=== PATIENT | female | born 1990 | race Caucasian/White ===

== ENCOUNTER 2018-09-04 22:29 | Inpatient (IN) ==
[~2018-09-04 22:29] MED LIST: *HR* Nalbuphine 10 MG/ML AMPUL IVP PRN; Famotidine 20 MG/2 ML VIAL IVP PRN; Metoclopramide 10 MG/2 ML VIAL IVP PRN; Naloxone 0.4 MG/ML INJ IVP PRN; Ondansetron 4 MG/2 ML VIAL IVP PRN
[2018-09-04] MEDS ORDERED: Ringers Solution, Lactated 1,000 ML IVC SCH (22:30)
[2018-09-04] MEDS ORDERED: Bupivacaine-MPF 0.25% 10 ML VIAL EP ONE (22:56)
[2018-09-04] MEDS ORDERED: *HR* FentaNYL (PF) 100 MCG/2 ML VIAL EP ONE (22:56)
[2018-09-04] MEDS ORDERED: Lidocaine -MPF 1% 5 ML AMPUL ONE (22:58)
[2018-09-04] MEDS ORDERED: *HR* FentaNYL (PF) 100 MCG/2 ML VIAL ONE (22:58)
[2018-09-04] MEDS ORDERED: Bupivacaine-MPF 0.25% 10 ML VIAL ONE (22:58)
[2018-09-04] MEDS ORDERED: Epidural Premix (fent/bupiv) 110 ML EP SCH (23:00)
[2018-09-04 23:08] LABS: Basophils # 0.1 K/mcL (0.0-0.2); Basophils % 0.3 %; Eosinophils # 0.1 K/mcL (0.0-0.6); Eosinophils % 0.4 %; Hematocrit 34.7 % (35.3-44.9); Hemoglobin 12.3 g/dL (11.5-15.4); Immature Granulocytes % 0.4 % (0-4); Lymphocytes # 2.9 K/mcL (0.6-4.6); Lymphocytes % 19.1 %; Mean Corpuscular HGB Conc 35.4 g/dL (31.6-35.5); Mean Corpuscular Hemoglobin 30.7 pg (28.0-33.3); Mean Corpuscular Volume 86.5 fL (83.0-100.0); Mean Platelet Volume 11.1 fL (9.4-12.4); Monocytes # 0.9 K/mcL (0.0-1.3); Monocytes % 5.6 %; Neutrophils # 11.3 K/mcL (1.6-8.9); Platelet Count 178 K/mcL (140-400); Red Blood Count 4.01 M/mcL (3.82-4.97); Red Cell Distribution Width 12.3 % (11.5-14.5); Segmented Neutrophils % 74.2 %
--- NOTE | 2018-09-04 23:14 | Anesthesia Evaluation PreOp ---
Date of Encounter: 09/04/18 Time of Encounter: 23:12 - Past History Planned Operation: [facility] Cardiac History: Denies any Significant Hx Pulmonary History: Smoker (1/2ppd), Pack/yr (7) PATIENT CARE SPECIALIST History: Denies Any Significant HX Other Medical History: Other (chronic lower back pain w/out radiculopathy; an xiety, depression, ADHD) Anesthesia History: No Prior Anesthetic Complications (previous MARKUS x 3--no complications) : Yes Alcohol Use: none Drug use: prescription drug abuse Medications and Allergies Promethazine [Phenergan] 12.5 mg PO Q8HR #15 tablet 02/05/18 [Rx] Suboxone 8 mg-2 mg Sl Film 8 mg PO BID 02/05/18 [History] Allergy/AdvReac Type Severity Reaction Status Date / Time dextromethorphan AdvReac Vomiting Verified 02/05/18 11:41 [From Capmist DM] guaifenesin [From Capmist DM] AdvReac Vomiting Verified 02/05/18 11:41 pseudoephedrine AdvReac Vomiting Verified 02/05/18 11:41 [From Capmist DM] sulfamethoxazole AdvReac Cramping Verified 02/05/18 11:41 [From Bactrim] of the Muscles trimethoprim [From Bactrim] AdvReac Cramping Verified 02/05/18 11:41 of the Muscles - Meds/Allergy Pre-op Review Medications Reviewed: Yes Allergies Reviewed: Yes Beta Blockers on Current Med List: No Anesthesia Results - Labs 09/04/18 22:40 Anesthesia Exam 120/74, HR 69 O2 Sat Height 1.6 m Weight 61.689 kg NPO (# of Hours): solids > 5hr Pain Scale: 6 Pain Scale Used: Mooney-Patterson (Faces) - HEENT Pupil (Motor): Pupils equal Mallampati: II Teeth: Edentulous Denture Type: Upper: Complete, Lower: Complete Oral Opening: Greater than 3 - PATIENT CARE SPECIALIST LOC: Oriented PATIENT CARE SPECIALIST Motor: Normal RUE, Normal LUE, Normal RLE, Normal LLE, Normal Face PATIENT CARE SPECIALIST Sensory: Normal: RUE, LUE, RLE, LLE, Face - Cardiac Rhythm: Regular Murmur: None - Pulmonary Breath Sounds: bilateral Clear Respiratory Effort: Symmetrical Anesthesia Assess/Plan ASA Score: 2 Level of consciousness: Cooperative, Oriented, Restless Anesthetic Plan: Epidural Monitoring Plan: Standard Monitors Recovery Plan: Other
--- NOTE | 2018-09-04 23:21 | OB/GYN History & Physical ---
Date of Encounter: 09/04/18 Time of Encounter: 23:12 Assessment and Plan (1) 38 weeks gestation of Current visit: Yes Status: Acute Admit for spontaneous labor at 38w5d. Patient is found to be 6 cm on arrival May have epidural when she desires. AROM when appropriate Anticipate (2) NST (non-stress test) reactive Current visit: Yes Status: Acute FHR 125 bpm, moderate variability, +15x15 accels, no decels. (3) Spontaneous onset of labor Current visit: Yes Status: Acute Admit for labor at 38w5d History of Present Illness Chief complaint: Labor evaluation HPI: Ms. Reeves is a 28 year old female at 38w5d who arrives with complaint of spontaneous onset of labor. She reports contractions starting at 8PM this evening. She does report positive movement, denies bleeding and fluid leakage. Blood type B+ GBS negative T. Pall negative Varicella Immune Rubella Immune HIV negative Past Med Surg Social Fam HX - Past Medical History Source: patient Medical history: non-contributory Additional medical history: Teeth extraction Psychiatric history: anxiety, ADHD, depression - Past Surgical History Surgical History: no surgical history Additional surgical history: colonoscopy - Social History Smoking Status: Current every day smoker Packs per day: .5 Smokeless Tobacco Status: No Alcohol use: none Drug use: prescription drug abuse Current living situation: Home - Independent, With Family Activity Level: Independent ambulation Recent Out of Country Travel Within the Last 8 Weeks: No Exposure or Possible Exposure to Illness During Travel: No - Family History Father Living Status: Still Living Hx Family Cardiac Disorders: Yes (HTN) Hx Family Respiratory Disorders: No Hx Family Cancer: No Hx Family GI Disorders: No Hx Family Genitourinary Disorders: No Hx Family Endocrine Disorder: No Hx Family Musculoskeletal Disorders: No Hx Family Neuromuscular Disorders: No Hx Family Neurologic Disorders: No Hx Family HEENT Disorders: No Hx Family Autoimmune Disorders: No Hx Family Reproductive Disorders: No Hx Family Psychosocial Disorders: No Hx Family Medical Disorders: No Obstetrical History - Pregnancies : 5 Para: 4 Medications and Allergies Promethazine [Phenergan] 12.5 mg PO Q8HR #15 tablet 02/05/18 [Rx] Suboxone 8 mg-2 mg Sl Film 8 mg PO BID 02/05/18 [History] Allergy/AdvReac Type Severity Reaction Status Date / Time dextromethorphan AdvReac Vomiting Verified 02/05/18 11:41 [From Capmist DM] guaifenesin [From Capmist DM] AdvReac Vomiting Verified 02/05/18 11:41 pseudoephedrine AdvReac Vomiting Verified 02/05/18 11:41 [From Capmist DM] sulfamethoxazole AdvReac Cramping Verified 02/05/18 11:41 [From Bactrim] of the Muscles trimethoprim [From Bactrim] AdvReac Cramping Verified 02/05/18 11:41 of the Muscles Exam - Constitutional Constitutional: well developed, well nourished, no acute distress, thin - HEENT HEENT: Normocephaly - Neck Neck exam: full ROM, normal inspection - Lungs Respiratory exam: CTAB - Cardiovascular Cardiovascular exam: RRR, +S1, +S2 - Breasts Breast: bilateral: normal - Abdomen Abdomen: Present: bowel sounds normal, gravid, non tender - Extremities Extremities exam: full ROM, normal capillary refill, normal inspection Deep Tendon Reflex Grade: 2+ Normal - Vulva Vulva: bilateral: normal - Vagina Vagina: Present: normal moisture - Cervix Dilation: 6 (per RN exam) - Adnexa Adnexa: bilateral: normal - Anus/Rectum Anus/Rectum: Present: normal perianal skin Results Result Diagrams: 09/04/18 22:40 Abnormal lab results WBC 15.3 K/mcL (4.3-11.1) H 09/04/18 22:40 Hct 34.7 % (35.3-44.9) L 09/04/18 22:40 Neutrophils # 11.3 K/mcL (1.6-8.9) H 09/04/18 22:40 All other labs normal. - VTE Reasons for not Prescribing Prophylaxis: Treatment not Indicated - Low risk for VTE
--- NOTE | 2018-09-04 23:41 | Anesthesia Procedures ---
Date of Encounter: 09/04/18 Time of Encounter: 23:39 Procedures: Anesthesia - Epidural/Spinal Patient ID/Chart reviewed: Yes Patient examined: Yes OB Eval: Gestational age: 38 weeks 5 days OB Eval: : 5 OB Eval: Hx Para: 4 OB Eval: Dilated at (cm): 6 OB Eval: Contractions: Non-stressed pattern Consent Obtained: Yes Supplemental Oxygen: None/Room Air Site Prep: Aseptic Technique, Sterile prep and drape, Povidone-Iodine 1% Patient position: upright Local Anesthetic: Lidocaine 1% Amount of Local Anesthetic used: 3 Touhy Needle Gauge: 18 Touhy Needle Depth (cm): 5 Catheter Depth at Skin (cm): 10 Test Dose (1.5% Lido + Epi): Volume given (mls): 5 Test Dose Result: Negative Loading Dose: 0.25% Marcaine (mls): 5 Loading Dose: Fentanyl (mcg): 100 Loading Dose Administered: Thru Catheter Infusion Med: 0.125% Bupivacaine w/ 2 mcg/ml Fentanyl Infusion Rate (mls/hr): [address]: Tegaderm, Tape Interspace Used: L4-L5 Loss of Resistance (DONALD): Yes Blood: No CSF: No Paresthesia: No Procedure: successful on 1st attempt; patient tolerated procedure well; VSS Vitals + FHT's: see [facility]'s electronic records for VS entry
--- NOTE | 2018-09-05 00:16 | OB Labor Progress Note ---
Date of Encounter: 09/05/18 Time of Encounter: 00:02 Labor Progress Note - Subjective Subjective: Patient is comfortable with epidural in place. - Vital Signs Vital Signs: WNL - Cervix Cervix: 6/80/-1 - Heart Tones Heart Tones: FHR 125 bpm, moderate variability, +15x15 accels, variable decels. - Bingham Bingham: q2 min - Interventions Interventions: SVE AROM for small amount of moderate meconium fluid - Plan Physician notified: No Plan: Anticipate
[2018-09-05 01:47] LABS: Amphetamine Screen,Urine Negative ng/mL (Cutoff=1000); Barbiturate Screen,Urine Negative ng/mL (Cutoff=200); Benzodiazepines Screen,Urine Negative ng/mL (Cutoff=200); Cannabinoid Screen,Urine Negative ng/mL (Cutoff = 50); Cocaine Screen,Urine Negative ng/mL (Cutoff= 300); Opiate Screen,Urine Negative ng/mL (Cutoff=300); Phencyclidine Screen,Urine Negative ng/mL (Cutoff=25)
--- NOTE | 2018-09-05 03:21 | OB/GYN Procedure Note ---
Delivery - Delivery Date: 09/05/18 Provider: Elva Porras Intrapartum events: meconium Delivery induction: none Delivery augmentation: rupture of membranes Delivery monitor: external FHT, external uterine Anesthesia: none Quantitated Blood Loss: 50 - Infant (s) Infant A Delivery Date: 09/05/18 Infant Delivery Time: 02:46 Presentation: vertex Position: JENNIFER Route of delivery: Gender: Female Viability: Viable Pounds: 5 Ounces: 0 Weight Gram: 2265 kg at 1 minute: 8 at 5 mins: 8 Shoulder Dystocia: not encountered Specimens collected: cord blood Placenta: spontaneous Cord: 3 umbilical vessels - Repair Episiotomy: none Laceration Description: None - Complications Delivery complications: none Delivery comments: Called to room for delivery. Under maternal effort, spontaneous delivery of viable female over intact perineum. placed on maternal abdomen for drying and stimulation. Cord clamped and cut after pulsation ceased. Spontaneous delivery of intact placenta, EBL 50 mL's. No nuchal cord or shoulder dystocia encountered. Meconium was noted with AROM and at delivery. Mother stable for 2 hr recovery. to nursery for signs of respiratory distress. weighed 5 lbs, apgars 8 & 8. - Disposition Mom disposition: stable in LDR disposition: stable in LDR
[2018-09-05] MEDS ORDERED: Acetaminophen 325 MG TABLET PO ONE (03:30)
[2018-09-05] MEDS ORDERED: Oxytocin 20 units/ LR 1000 mL 20 UNIT/1,000 ML BAG IVC ONE (03:51)
[2018-09-05] MEDS ORDERED: Lanolin 7 G OINT...G. TP PRN (06:25)
[2018-09-05] MEDS ORDERED: Acetaminophen 325 MG TABLET PO PRN (06:25)
[2018-09-05] MEDS ORDERED: Oxytocin 20 units/ LR 1000 mL 20 UNIT/1,000 ML BAG IVC SCH (06:25)
[2018-09-05] MEDS: Prenatal Vit/FA 1 EACH TABLET PO SCH (08:06)
[2018-09-05] MEDS: Ibuprofen 600 MG TABLET PO PRN ×2 (08:06→15:13)
[2018-09-06 07:37] VITALS: BP 134/83
[2018-09-06] MEDS: Ibuprofen 600 MG TABLET PO PRN (09:15)
[2018-09-06] MEDS: Prenatal Vit/FA 1 EACH TABLET PO SCH (09:16)
--- NOTE | 2018-09-06 10:39 | Discharge Summary ---
Date of Encounter: 09/06/18 Time of Encounter: 10:30 - Discharge Diagnosis (1) Spontaneous vaginal delivery Priority: Primary Status: Acute Comments: Patient meeting day one milestones. Pain well-controlled with prescribed medications. Voiding without difficulty, tolerating regular diet, bleeding light. No bowel movement yet, but patient reports she does feel like she needs to have a BM. Anticipate discharge today to guest status. Depo and Nexplanon offered prior to discharge but patient plans to use the NuvaRing at 4 weeks . Discussed need for barrier method if she is sexually active prior to her 4 week appointment and she verbalizes understanding. (2) Breast feeding status of mother Priority: Secondary Status: Acute Comments: support as needed. Will provide breast pump prescriptions. (3) complicated by subutex maintenance, antepartum Priority: Secondary Status: Acute Comments: Patient is currently status To continue Subutex dosing as prescribed by her physician. She is not in our group here at [place]. - Discharge Medications Prescriptions: New Acetaminophen [Tylenol] 650 mg PO Q6HR PRN tablet PRN Reason: Mild Pain Ibuprofen [Motrin] 600 mg PO Q6HR PRN #60 tablet PRN Reason: Cramping Breast Pump [BREAST PUMP] 1 each .ROUTE AD #1 each Docusate [Colace] 100 mg PO BID capsule Lanolin [Lansinoh] 1 appl TP TID PRN oint...g. PRN Reason: Sore Nipples Continue Suboxone 8 mg-2 mg Sl Film 8 mg PO BID Home Medications: Suboxone 8 mg-2 mg Sl Film 8 mg PO BID 02/05/18 [History] Acetaminophen [Tylenol] 650 mg PO Q6HR PRN tablet 09/06/18 [Rx] Breast Pump [BREAST PUMP] 1 each .ROUTE AD #1 each 09/06/18 [Rx] Docusate [Colace] 100 mg PO BID capsule 09/06/18 [Rx] Ibuprofen [Motrin] 600 mg PO Q6HR PRN #60 tablet 09/06/18 [Rx] Lanolin [Lansinoh] 1 appl TP TID PRN oint...g. 09/06/18 [Rx] Allergies/Adverse Reactions: Allergy/AdvReac Type Severity Reaction Status Date / Time dextromethorphan AdvReac Vomiting Verified 02/05/18 11:41 [From Capmist DM] guaifenesin [From Capmist DM] AdvReac Vomiting Verified 02/05/18 11:41 pseudoephedrine AdvReac Vomiting Verified 02/05/18 11:41 [From Capmist DM] sulfamethoxazole AdvReac Cramping Verified 02/05/18 11:41 [From Bactrim] of the Muscles trimethoprim [From Bactrim] AdvReac Cramping Verified 02/05/18 11:41 of the Muscles Data Procedures and tests throughout hospitalization: Laboratory Tests 09/04/18 09/04/18 22:29 22:40 WBC 15.3 H RBC 4.01 Hgb 12.3 Hct 34.7 L MCV 86.5 MCH 30.7 MCHC 35.4 RDW 12.3 Plt Count 178 MPV 11.1 Immature Gran % 0.4 Seg Neutrophils % 74.2 Lymphocytes % 19.1 Monocytes % 5.6 Eosinophils % 0.4 Basophils % 0.3 Neutrophils # 11.3 H Lymphocytes # 2.9 Monocytes # 0.9 Eosinophils # 0.1 Basophils # 0.1 Urine Opiates Screen Negative Ur Barbiturates Screen Negative Ur Phencyclidine Scrn Negative Ur Amphetamines Screen Negative U Benzodiazepines Scrn Negative Urine Cocaine Screen Negative U Marijuana (THC) Screen Negative Ur Drug Screen Interp See Below Date of admission: 09/04/18 22:29 Primary care physician: Eula Nelson CNP Consults: 09/05/18 00:23 Consult to Ui Developer Designer ([employer]) [CONS] Stat Reason For Exam: Reason for SW Consult: subutex, history of post depression 09/05/18 06:25 Consult to Team Psychologist [CONS] Routine Comment: Vaginal delivery, consult needed Consult to Ui Developer Designer [CONS] Routine Reason for SW Consult: Subutex RX Discharging clinician: Elva Porras Anticipated date of discharge: 09/06/18 - Patient Status Disposition: Home, Self-Care Condition: Good Functional capacity at discharge: independent ambulation Overall status at discharge: patient is progressing back to baseline - Discharge Instructions Follow Up With: Eula Nelson CNP [Primary Care Provider] - - Diet and Activity Activity: resume usual activities as tolerated Diet: regular diet Hospital Course Reason for admission: active labor Delivery: Episiotomy: none baby: female Hospital course: Delivery Date: 09/05/18 Provider: Elva Porras Intrapartum events: meconium Delivery induction: none Delivery augmentation: rupture of membranes Delivery monitor: external FHT, external uterine Anesthesia: none Quantitated Blood Loss: 50 - (s) A Delivery Date: 09/05/18 Infant Delivery Time: 02:46 Presentation: vertex Position: JENNIFER Route of delivery: Gender: Female Viability: Viable Pounds: 5 Ounces: 0 Weight Gram: 2265 kg at 1 minute: 8 at 5 mins: 8 Shoulder Dystocia: not encountered Specimens collected: cord blood Placenta: spontaneous Cord: 3 umbilical vessels - Repair Episiotomy: none Laceration Description: None - Complications Delivery complications: none Delivery comments: Called to room for delivery. Under maternal effort, spontaneous delivery of viable female over intact perineum. Infant placed on maternal abdomen for drying and stimulation. Cord clamped and cut after pulsation ceased. Spontaneous delivery of intact placenta, EBL 50 mL's. No nuchal cord or shoulder dystocia encountered. Meconium was noted with AROM and at delivery. Mother stable for 2 hr recovery. to nursery for signs of respiratory distress. Infant weighed 5 lbs, apgars 8 & 8. - Disposition Mom disposition: stable in LDR disposition: stable in LDR Time Attestation: Total time spent providing and/or coordinating discharge services: Time Spent: Less than 30 minutes Exam - Constitutional Vitals: Temp Pulse Resp BP Pulse Ox 97.8 F 55 14 134/83 98 09/06/18 07:37 09/06/18 07:37 09/06/18 07:37 09/06/18 07:37 09/06/18 07:37 General appearance IM: A&O X 3, pleasant, no acute distress, answers questions appropriately - Respiratory Respiratory exam: Present: CTAB - Cardiovascular Cardiovascular exam IM: Present: RRR, +S1, +S2 - GI/Abdominal GI/Abdominal exam IM: normal bowel sounds, soft - Rectal Rectal exam: deferred - External exam: normal external exam Uterine Tone: Firm Uterus Position: 1 Finger Below Umbilicus, Midline - Extremities Exam Extremities exam IM: Present: full ROM, normal capillary refill, normal inspection - Neurological Exam Neurological exam: alert, normal gait, oriented X3
== END 2018-09-06 14:57 | disposition home or self-care (01) | DRG 560 ==
LOC: 1NENULAB → 1NENUOBS 09-05 06:07
PROVIDERS: ADMIT Registered Nurse; ATTEND Registered Nurse

== ENCOUNTER 2020-07-06 13:55 | Inpatient (IN) ==
[2020-07-06] MEDS ORDERED: Famotidine 20 MG/2 ML VIAL IVP PRN (14:14)
[2020-07-06] MEDS ORDERED: Naloxone 0.4 MG/ML INJ IVP PRN (14:14)
[2020-07-06] MEDS ORDERED: Ondansetron 4 MG/2 ML VIAL IVP PRN (14:14)
[2020-07-06] MEDS ORDERED: Azithromycin 500 MG in 0.9 % Sodium Chloride 250 ML IVPB PRN (14:14)
[2020-07-06] MEDS ORDERED: miSOPROStoL 25 MCG TABLET PO PRN (14:14)
[2020-07-06] MEDS ORDERED: Metoclopramide 10 MG/2 ML VIAL IVP PRN (14:14)
[2020-07-06] MEDS ORDERED: *HR* Nalbuphine 10 MG/ML AMPUL IV PRN (14:14)
[2020-07-06] MEDS ORDERED: Oxytocin 20 units/ LR 1000 mL 20 UNIT/1,000 ML BAG IVC SCH (14:15)
[2020-07-06 15:23] LABS: Basophils # 0.1 K/mcL (0.0-0.2); Basophils % 0.4 %; Eosinophils % 0.3 %; Hematocrit 35.8 % (35.3-44.9); Immature Granulocytes % 0.5 % (0-4); Lymphocytes # 2.6 K/mcL (0.6-4.6); Lymphocytes % 22.3 %; Mean Corpuscular HGB Conc 33.5 g/dL (31.6-35.5); Mean Corpuscular Hemoglobin 29.8 pg (28.0-33.3); Mean Corpuscular Volume 88.8 fL (83.0-100.0); Mean Platelet Volume 10.8 fL (9.4-12.4); Monocytes # 0.6 K/mcL (0.0-1.3); Monocytes % 5.1 %; Neutrophils # 8.3 K/mcL (1.6-8.9); Platelet Count 219 K/mcL (140-400); Red Blood Count 4.03 M/mcL (3.82-4.97); Red Cell Distribution Width 12.7 % (11.5-14.5); Segmented Neutrophils % 71.4 %; White Blood Count 11.7 K/mcL (4.3-11.1)
[2020-07-06 15:39] LABS: Amphetamine Screen,Urine Negative ng/mL (Cutoff=1000); Barbiturate Screen,Urine Negative ng/mL (Cutoff=200); Benzodiazepines Screen,Urine Negative ng/mL (Cutoff=200); Cannabinoid Screen,Urine Negative ng/mL (Cutoff = 50); Cocaine Screen,Urine Negative ng/mL (Cutoff= 300); Opiate Screen,Urine Negative ng/mL (Cutoff=300); Phencyclidine Screen,Urine Negative ng/mL (Cutoff=25)
== END 2020-07-06 19:00 | disposition home or self-care (01) | DRG 566 ==
LOC: 1NENULAB 13:55
PROVIDERS: ADMIT Registered Nurse; ATTEND Registered Nurse

== ENCOUNTER 2020-07-09 17:40 | Inpatient (IN) ==
[2020-07-09] MEDS ORDERED: Famotidine 20 MG/2 ML VIAL IVP PRN (18:47)
[2020-07-09] MEDS ORDERED: Naloxone 0.4 MG/ML INJ IVP PRN (18:47)
[2020-07-09] MEDS ORDERED: Metoclopramide 10 MG/2 ML VIAL IVP PRN (18:47)
[2020-07-09] MEDS ORDERED: *HR* Nalbuphine 10 MG/ML AMPUL IV PRN (18:47)
[2020-07-09] MEDS ORDERED: Azithromycin 500 MG in 0.9 % Sodium Chloride 250 ML IVPB ONE (18:47)
[2020-07-09] MEDS ORDERED: Ondansetron 4 MG/2 ML VIAL IVP PRN (18:47)
[2020-07-09] MEDS ORDERED: Oxytocin 20 units/ LR 1000 mL 20 UNIT/1,000 ML BAG IVC SCH (19:00)
[2020-07-09 19:17] LABS: Basophils # 0.1 K/mcL (0.0-0.2); Basophils % 0.4 %; Eosinophils # 0.1 K/mcL (0.0-0.6); Eosinophils % 0.5 %; Hematocrit 35.9 % (35.3-44.9); Hemoglobin 12.1 g/dL (11.5-15.4); Immature Granulocytes % 0.4 % (0-4); Lymphocytes # 3.3 K/mcL (0.6-4.6); Lymphocytes % 26.9 %; Mean Corpuscular HGB Conc 33.7 g/dL (31.6-35.5); Mean Corpuscular Hemoglobin 29.6 pg (28.0-33.3); Mean Corpuscular Volume 87.8 fL (83.0-100.0); Monocytes # 0.6 K/mcL (0.0-1.3); Monocytes % 4.8 %; Neutrophils # 8.2 K/mcL (1.6-8.9); Platelet Count 217 K/mcL (140-400); Red Blood Count 4.09 M/mcL (3.82-4.97); Red Cell Distribution Width 12.8 % (11.5-14.5); White Blood Count 12.2 K/mcL (4.3-11.1)
[2020-07-09 19:31] LABS: Amphetamine Screen,Urine Negative ng/mL (Cutoff=1000); Barbiturate Screen,Urine Negative ng/mL (Cutoff=200); Benzodiazepines Screen,Urine Negative ng/mL (Cutoff=200); Cannabinoid Screen,Urine Negative ng/mL (Cutoff = 50); Cocaine Screen,Urine Negative ng/mL (Cutoff= 300); Opiate Screen,Urine Negative ng/mL (Cutoff=300); Phencyclidine Screen,Urine Negative ng/mL (Cutoff=25)
[2020-07-09] MEDS ORDERED: Ringers Solution, Lactated 1,000 ML ONE ×2 (19:31→20:12)
[2020-07-09 20:11] LABS: Adenovirus Not Detected (Not Detect); Bordetella Pertussis Not Detected (Not Detect); Chlamydophila pneumoniae Not Detected (Not Detect); Coronavirus 229E Not Detected (Not Detect); Coronavirus HKU1 Not Detected (Not Detect); Coronavirus NL63 Not Detected (Not Detect); Coronavirus OC43 Not Detected (Not Detect); Human Metapneumovirus Not Detected (Not Detect); Human Rhinovirus/Enterovirus Not Detected (Not Detect); Influenza A Subtype 2009 H1 Not Detected (Not Detect); Influenza B Not Detected (Not Detect); Mycoplasma pneumoniae Not Detected (Not Detect); Parainfluenza Virus 1 Not Detected (Not Detect); Parainfluenza Virus 2 Not Detected (Not Detect); Parainfluenza Virus 3 Not Detected (Not Detect); Parainfluenza Virus 4 Not Detected (Not Detect); Respiratory Syncytial Virus Not Detected (Not Detect); SARS-CoV-2 Not Detected (Not Detect)
[2020-07-09] MEDS ORDERED: Bupivacaine-MPF 0.25% 10 ML VIAL EP ONE (20:16)
[2020-07-09] MEDS ORDERED: EPHEDrine 50 MG/ML VIAL IVP PRN (20:16)
[2020-07-09] MEDS ORDERED: *HR* FentaNYL (PF) 100 MCG/2 ML VIAL EP ONE (20:16)
[2020-07-09] MEDS ORDERED: Epidural Premix (fent/bupiv) 110 ML EP ONE (20:21)
[2020-07-09] MEDS ORDERED: Epidural Premix (fent/bupiv) 110 ML EP SCH (20:30)
[2020-07-10] MEDS ORDERED: Lanolin 7 G OINT...G. TP PRN (02:51)
[2020-07-10] MEDS ORDERED: Benzocaine/Menthol 56 GM AEROSOL SPRAY TP PRN (02:51)
[2020-07-10] MEDS ORDERED: Oxytocin 20 units/ LR 1000 mL 20 UNIT/1,000 ML BAG IVC SCH (02:51)
[2020-07-10] MEDS: Ibuprofen 600 MG TABLET PO PRN ×2 (03:59→14:45)
[2020-07-10] MEDS: Acetaminophen 325 MG TABLET PO PRN ×2 (03:59→19:58)
[2020-07-10] MEDS: Prenatal Vit/FA 1 EACH TABLET PO SCH (07:57)
[2020-07-11 09:04] VITALS: BP 91/65
[2020-07-11] MEDS: Prenatal Vit/FA 1 EACH TABLET PO SCH (09:34)
[2020-07-11] MEDS: Ibuprofen 600 MG TABLET PO PRN (09:34)
== END 2020-07-11 11:28 | disposition home or self-care (01) | DRG 560 ==
LOC: 1NENULAB 17:40 → 1NENUOBS 07-10 02:50
PROVIDERS: ADMIT Registered Nurse; ATTEND Registered Nurse